=== PATIENT | female | born 1930 | race Caucasian/White ===

== ENCOUNTER 2016-10-10 06:04 | Emergency (ER) | payer OTHER, MEDICARE ==
[~2016-10-10] VITALS: Ht 162.6 cm; Wt 56.7 kg
[~2016-10-10 06:04] MED LIST: ALENDRONATE SOD70 M2 PO; ASPIR 8181 M1 PO; ATORVASTATIN CA20 M1 PO; CALTRATE 600 +1 EACH PO; CIPRO500 M1 PO; DAILY VALUE1 EACH PO; DONEPEZIL HCL23 MG PO; FOSAMAX70 M1 PO; LOVENOX100 MG/1 M SC; NAMENDA XR28 M1 PO; TRAZODONE HCL50 M1 PO; Theragran Vitamins PO; VALSARTAN-HCTZ1 EAC1 PO; VITAMIN D31000 UNI1 PO; VITAMIN D3400 UNI1 PO; VITAMIN D35000 UNI1 PO; WARFARIN SODIUM5 M1 PO
[2016-10-10 06:45] LABS: ABSOLUTE BASOPHIL COUNT 0 /CUMM (0.0-0.2); ABSOLUTE EOSINOPHIL COUNT 0.1 /CUMM (0.0-0.7); ABSOLUTE GRANULOCYTE CT 6.4 /CUMM (1.4-6.5); ABSOLUTE LYMPH COUNT 1.3 /CUMM (1.2-3.4); BASOPHIL % 0.5 % (0.0-2.0); GRANULOCYTE % 72.8 % (42.2-75.2); HEMATOCRIT 25.3 % (37-47); MEAN CORPUSCULAR HGB 26.9 PG (27.0-31.0); MEAN CORPUSCULAR HGB CONC 32.4 G/DL (33.0-37.0); MEAN CORPUSCULAR VOLUME 82.9 FL (81.0-99.0); MEAN PLATELET VOLUME 6.9 FL (7.4-10.4); PLATELET COUNT 524 /CUMM (130-400); RBC DISTRIBUTION WIDTH 17.2 % (11.5-14.5); RED BLOOD CELL CT 3.05 /CUMM (4.20-5.40); WHITE BLOOD CELL COUNT 8.8 /CUMM (4.8-10.8)
--- NOTE | 2016-10-10 06:50 | ED GENERAL ADULT ---
History of Present Illness General Chief Complaint: General Adult Stated Complaint: PT BIBA [facility] C/O HYPOTENSION Source: old records, EMS Exam Limitations: unable to give history, dementia Vital Signs & Intake/Output Vital Signs & Intake/Output Vital Signs Date Time Temp Pulse Resp B/P B/P Pulse O2 O2 Flow FiO2 Mean Ox Delivery Rate 10/10 0741 112/58 10/10 0722 97.5 70 15 110/65 93 Room Air Room Air 10/10 0618 Room Air 10/10 0611 98.5 77 18 110/59 92 Room Air Allergies Coded Allergies: NO KNOWN ALLERGIES (03/09/16) Triage Note: [facility]IB[facility] FACILITY CALLED EMS STATING PT HAS HAD A FEVER "FOR A WHILE." PT ARRIVES NONVERBAL, WARM TO TOUCH, TEMP 98.5 TEMPORAL. Triage Nurses Notes Reviewed? yes HPI: History is extremely limited as the patient is unable to provide history. She is essentially aphasic. According to the patient's records she had a decreased blood pressure and increased temperature. Her blood pressure has been low for the "past few days". Blood pressure 80/59, 80/58. Patient began spiking a fever at 5:00am yesterday it appears. (IVANNA HUGHES,CESAR Agosto) Reconcile Medications Alendronate Sodium 70 MG TABLET 1 TAB PO QW BONE (Reported) in the morning, at least 30 minutes before the first food, beverage, or medication of the day Atorvastatin Calcium 20 MG TABLET 1 TAB PO DAILY CHOLESTEROL (Reported) Calcium Carbonate/Vitamin D3 (Caltrate 600 + D Tablet) 600 MG-800 TABLET 1 TAB PO BID SUPPLEMENT (Reported) Cholecalciferol (Vitamin D3) (Vitamin D3) 5,000 UNIT TABLET 1 TAB PO DAILY SUPPLEMENT (Reported) Ciprofloxacin HCl (Cipro) 500 MG TABLET 1 TAB PO BID UTI Donepezil HCl 23 MG TABLET 1 TAB PO DAILY DEMENTIA (Reported) Memantine HCl (Namenda XR) 28 MG CAP.SPR.24 1 CAP PO DAILY DEMENTIA (Reported ) Multivitamin (Daily Value) 1 EACH TABLET 1 TAB PO DAILY SUPPLEMENT (Reported) Trazodone HCl 50 MG TABLET 0.5 TAB PO DAILY MENTAL HEALTH (Reported) Trazodone HCl 50 MG TABLET 1 TAB PO QPM SLEEP (Reported) Valsartan/Hydrochlorothiazide (Valsartan-Hctz 160-12.5 MG Tab) 1 EACH TABLET 1 TAB PO DAILY HEART (Reported) Warfarin Sodium 5 MG TABLET 1 TAB PO DAILY pulmonary embolism Check INR daily and dose to maintain therapeutic INR 2-3. Overlap Lovenox and Coumadin for at least five days, then discontinue Lovenox after INR has been 2-3 for two days. (ULISES HUGHES,JAGUAR Montero) Past History Travel History Traveled to [place] past 21 day No Medical History Any Pertinent Medical History? see below for history Neurological: dementia EENT: cataracts Cardiovascular: HYPERTENSION, HYPERLIPIDEMIA Respiratory: COPD Gastrointestinal: NONE Hepatic: NONE Renal: NONE Musculoskeletal: NONE Psychiatric: NONE Endocrine: osteoporosis Blood Disorders: PE Cancer(s): lung cancer History of MRSA: No History of VRE: No History of CDIFF: No Surgical History Surgical History: hysterectomy, removal of three parathyroid glands Psychosocial History Who do you live with Family Services at Home Home Health Aide (twice a week), Physical Therapy What is your primary language Croatian Tobacco Use: Cognitive Impairment Family History Family History, If Any: BROTHER FH: colon cancer SISTER FH: myocardial infarction Hx Contributory? No (IVANNA HUGHES,CESAR Agosto) Review of Systems Review of Systems Constitutional: Reports: see HPI. Comments Patient unable to provide review of systems (IVANNA HUGHES,CESAR Agosto) Physical Exam Physical Exam General Appearance: see below Comments: Gen.: Well-nourished, well-developed, no acute respiratory distress. Head: Normocephalic, atraumatic. Eyes: Normal inspection bilaterally Ears: Normal inspection bilaterally Nose: Normal inspection Throat/mouth : Moist mucosa Neck: Supple, full range of motion, no goiter Heart: Regular rate and rhythm Lungs: Clear to auscultation bilaterally with normal air entry Chest: Nontender Back: Normal range of motion Abdomen: Soft, nontender, nondistended, normal bowel sounds Extremities: Normal range of motion grossly, equal radial pulses, no cyanosis, bilateral foot and ankle pitting edema, 1+ Neurologic: Cranial nerves grossly intact, unable to assess speech Skin: warm and dry Psychiatric: Calm, compliant with exam, unable to assess further Core Measures ACS in differential dx? No CVA/TIA Diagnosis: No Severe Sepsis Present: No Septic Shock Present: No (IVANNA HUGHES,CESAR Agosto) Progress Differential Diagnoses I considered the following diagnoses in my evaluation of the patient: Pneumonia, urinary tract infection, bacteremia, dehydration, electrolyte abnormality Plan of Care: Orders Procedure Date/time Status Timmons, Insertion/Removal/Asses 10/10 648 Active PROTHROMBIN TIME 10/10 629 Complete CULTURE,URINE 10/10 628 Active BLOOD CULTURE 10/10 628 Active URINALYSIS 10/10 628 Complete COMPREHENSIVE METABOLIC PANEL 10/10 628 Complete CBC WITHOUT DIFFERENTIAL 10/10 628 Complete Current Medications Sig/Gill Start time Last Medication Dose Stop Time Status Admin Sodium Chloride 1,000 ML ONCE ONE 10/10 07 AC 10/10 (Normal Saline 0.9%) 10/10 1339 0658 Laboratory Tests 10/10/16655: Urine Color YEL, Urine Clarity HAZY H, Urine pH 6.0, Ur Specific [place] 1.020, Urine Protein TRACE H, Urine Ketones NEG, Urine Nitrite POS H, Urine Bilirubin NEG, Urine Urobilinogen 0.2, Ur Leukocyte Esterase SMALL H, Ur Microscopic SEDIMENT EXAMINED, Urine RBC 1-3, Urine WBC 10-15 H, Ur Epithelial Cells MANY H, Urine Bacteria MANY H, Urine Hemoglobin TRACE-INTACT, Urine Glucose NEG 10/10/16629: Anion Gap 6, Estimated GFR > 60, BUN/Creatinine Ratio 40.0 H, Glucose 75, Calcium 8.0 L, Total Bilirubin 0.3, AST 17, ALT 28, Alkaline Phosphatase 126, Total Protein 5.0 L, Albumin 2.3 L, Globulin 2.7, Albumin/Globulin Ratio 0.9 L, PT 43.3 *H, INR 4.18 *H 10/10/16 0623: CBC w Diff NO MAN DIFF REQ, RBC 3.05 L, MCV 82.9, MCH 26.9 L, RDW 17.2 H, MPV 6.9 L, Gran % 72.8, Lymphocytes % 14.5 L, Monocytes % 11.2 H, Eosinophils % 1.0, Basophils % 0.5, Absolute Granulocytes 6.4, Absolute Lymphocytes 1.3, Absolute Monocytes 1.0 H, Absolute Eosinophils 0.1, Absolute Basophils 0, PUBS MCHC 32.4 L Microbiology 10/11 655 URINE ROUT: Urine Culture - RECD 10/10 649 BLOOD: Blood Culture - RECD 10/10 629 BLOOD: Blood Culture - RECD Comments: 10/10/2016 7:04:09 AM patient signed out to 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 (IVANNA HUGHES,CESAR Agosto) Differential Diagnoses I considered the following diagnoses in my evaluation of the patient: Initial ED EKG: none Comments: PT REMAINED NORMOTENSIVE AND AFEBRILE. 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 PT RECENTLY FINISHED A COURSE OF CIPRO. PT STARTED ON BACTRIM DS. INR ELEVATED. WILL HOLD COUMADIN AND RECHECK ON WEDNESDAY. (ULISES HUGHES,JAGUAR Montero) Departure Departure Referrals: STEFFEN BONNER MD (PCP/Family) Departure Forms: Customer Survey General Discharge Information (IVANNA HUGHES,CESAR Agosto) Departure Disposition: ACUTE REHAB FACILITY Condition: Stable Clinical Impression Primary Impression: UTI (urinary tract infection) Secondary Impressions: Supratherapeutic INR (JAGUAR KRAMER MD) Critical Care Note Critical Care Note Critical Care Time: non-applicable (ULISES HUGHES,JAGUAR Montero)
[2016-10-10 06:58] LABS: PT 43.3 SEC (9.4-12.5)
--- NOTE | 2016-10-10 07:19 | RADIOLOGY REPORT ---
EXAMINATION: XR PORTABLE CHEST CLINICAL INFORMATION: Fever. COMPARISON: Chest radiographs 03/06/2016, 07/22/2015, CT chest 07/22/2015. TECHNIQUE: Portable upright AP view of the chest is performed. FINDINGS: The right lower lobe mass is increased in size, previously measuring 4.5 x 4.8 cm and currently measuring 6.1 x 7.1 cm. There is subsegmental atelectasis left base. The remainder of the lungs are clear. The vascularity is normal. There is no effusion. The heart is normal in size. The cardiac, hilar, mediastinal contours, and bony structures are similar to previous exam. IMPRESSION: 1. Right pulmonary mass increased in size currently measuring 6.1 x 7.1 cm on upright AP view. Prior measurement 4.5 x 4.8 cm. 2. Subsegmental atelectasis left base. Remainder of lungs clear. No effusion.
[2016-10-10] MEDS ORDERED: VITAMIN D31000 UNI2 PO (07:31)
[2016-10-10] MEDS ORDERED: CALTRATE 600 +1 EACH PO (07:34)
[2016-10-10] MEDS ORDERED: TRAZODONE HCL50 M1 PO ×2 (07:35→07:36)
[2016-10-10 09:38] VITALS: BP 113/56
== END 2016-10-10 10:01 ==
LOC: ERH 06:04
PROVIDERS: Emergency Medicine
DX: N39.0 Urinary tract infection, site not specified (principal); R79.1 Abnormal coagulation profile
CPT/HCPCS: 81001; 87040; 87086; 96361; 96374; J0696